=== PATIENT | female | born 1945 | race Caucasian/White ===

== ENCOUNTER → 2016-11-21 | Outpatient (CLI) | payer OTHER | LOC: MMPC 10:00 | PROVIDERS: ATTEND Orthopaedic Surgery | DX: S56.414A Strain of extensor muscle, fascia and tendon of left middle finger at forearm level, initial encounter (principal) | CPT/HCPCS: 99212; G0463 ==

== ENCOUNTER → 2016-12-03 | Outpatient (CLI) | payer OTHER ==
[2016-12-03 09:14] LABS: BILIRUBIN,TOTAL 0.7 mg/dL (0.3-1.2); CALCIUM 9.5 mg/dL (8.7-10.7); CREATININE 0.8 mg/dL (0.50-1.20); LDL CHOLESTEROL,CALCULATED 174.6 mg/dL; POTASSIUM 4.5 meq/L (3.8-5.2); TOTAL PROTEIN 7.2 g/dL (6.1-8.0)
[2016-12-03 10:29] LABS: HEMOGLOBIN 14.7 g/dL (12.0-16.0); RED BLOOD COUNT 4.83 10^6/uL (4.20-5.40); WHITE BLOOD COUNT 4.04 10^3/uL (4.8-10.8)
[2016-12-03 10:30] LABS: IMM GRAN % (AUTO) 0.5 % (0-5); LYMPHOCYTES # (AUTO) 1.02 10*3/uL; MEAN CORPUSCULAR HEMOGLOBIN 30.4 PG (27-31); MEAN CORPUSCULAR HGB CONC 33.4 g/dL (33-37); MEAN PLATELET VOLUME 10.4 FL (7.4-12.2); MONOCYTES # (AUTO) 0.41 10*3/UL (0.3-0.8); NEUTROPHILS # (AUTO) 2.51 10*3/UL; NEUTROPHILS % (AUTO) 62.2 % (50-80); RDW COEFFICIENT OF VARIATION 14.2 % (11.5-14.5)
[2016-12-03 10:31] LABS: BASOPHILS # (AUTO) 0.02 10*3/UL; IMM GRAN# (AUTO) 0.02 10*3/UL; PLATELET MORPHOLOGY COMMENT NORMAL MORPHOLOGY (NORM)
[2016-12-03 10:35] LABS: LYMPHOCYTES % (AUTO) 25.2 % (10-50); MONOCYTES % (AUTO) 10.1 % (5-15)
[2016-12-03 10:36] LABS: BASOPHILS % (AUTO) 0.5 % (0-1); EOSINOPHILS % (AUTO) 1.5 % (0-8)
== END ==
LOC: LAB 08:31
PROVIDERS: ATTEND Internal Medicine
DX: E78.5 Hyperlipidemia, unspecified (principal); K57.30 Diverticulosis of large intestine without perforation or abscess without bleeding
CPT/HCPCS: 36415; 80053; 80061; 84443; 85025

== ENCOUNTER → 2016-12-05 | Outpatient (CLI) | payer OTHER | LOC: MMPC 11:11 | PROVIDERS: ATTEND Internal Medicine | DX: E78.5 Hyperlipidemia, unspecified (principal) | CPT/HCPCS: G0439; G0463 ==

== ENCOUNTER → 2016-12-19 | Outpatient (CLI) | payer OTHER | LOC: MMPC 10:00 | PROVIDERS: ATTEND Orthopaedic Surgery | DX: S56.41 Strain of extensor muscle, fascia and tendon of other and unspecified finger at forearm level (principal) | CPT/HCPCS: 99212; G0463 ==

== ENCOUNTER → 2017-02-04 | Outpatient (CLI) | payer OTHER | LOC: MMPC 09:00 | PROVIDERS: ATTEND Nurse Practitioner Family | DX: L81.8 Other specified disorders of pigmentation (principal) | CPT/HCPCS: 99213; G0463 ==

== ENCOUNTER → 2017-03-04 | Outpatient (CLI) | payer OTHER | LOC: MMPC 09:00 | PROVIDERS: ATTEND Nurse Practitioner Family | DX: Z01.419 Encounter for gynecological examination (general) (routine) without abnormal findings (principal) | CPT/HCPCS: G0101; G0439; G0463 ==

== ENCOUNTER → 2017-05-06 | Outpatient (CLI) | payer OTHER | LOC: RAD 15:50 | PROVIDERS: ATTEND Internal Medicine | DX: M25.551 Pain in right hip (principal); M16.11 Unilateral primary osteoarthritis, right hip; M54.17 Radiculopathy, lumbosacral region | CPT/HCPCS: 99214 ==

== ENCOUNTER → 2017-05-06 | Outpatient (CLI) | payer OTHER ==
--- NOTE | 2017-05-07 10:51 | DI ---
XR HIP B/L MIN 2VW, EACH HIP,05/06/2017 4:00 PM: Clinical History: Bilateral hip pain Previous Exam: May 06, 2017 Findings: AP and frog-leg views of both hips are obtained, and demonstrate anatomic alignment without fractures . There is near complete loss of joint space within the left hip with osteophyte formation and sclero sis. There is also new bone formation at the head neck junction of the left proximal femur. There is mild loss of joint space within the right hip without osteophyte formation or subchondral cy st formation. Mild degenerative changes are seen involving the symphysis pubis. Impression: Degenerative changes of the hips worst involving the left hip. Mild degenerative changes of the right hip.
== END ==
LOC: MOB LAB 15:49
PROVIDERS: ATTEND Internal Medicine
DX: M25.551 Pain in right hip (principal); M16.11 Unilateral primary osteoarthritis, right hip; M54.17 Radiculopathy, lumbosacral region
CPT/HCPCS: 73521; 99214

== ENCOUNTER → 2017-05-23 | Outpatient (CLI) | payer OTHER ==
--- NOTE | 2017-05-24 18:44 | DI ---
MRI LUMBAR SPINE SCAN WITHOUT IV CONTRAST, 05/23/2017 9:53 AM: Clinical History: L5 lumbosacral radiculopathy. Previous Exam: None. Technique: Sagittal and axial T2 weighted; sagittal T1 weighted and T2 STIR; and axial PD. The vertebral bodies are of normal height and size. Severe disc space narrowing is present at L1-2 an d L3-4 with mild narrowing at the remaining lumbar disc spaces. The cord terminates at T12 and the co nus medullaris is normal. The T10-11 disc spaces normal. T11-12 has a circumferentially bulging but n ot herniated disc without canal or neural foraminal stenosis. The T12-L1 disc space is normal. L1-2 h as a circumferentially bulging but not herniated disc without canal or neural foraminal stenosis. L2- 3 has a bulging but not herniated disc with hypertrophic changes of the apophyseal joints and ligamen quita flavum. There is no canal or significant neural foraminal stenosis. L3-4 has a circumferentially bulging but not herniated disc with hypertrophic changes of the apophyseal joints and ligamentum flav um producing a cross-sectional area of the canal at the lower limits of normal. There is no neural fo raminal stenosis. L4-5 has a grade 1 spondylolisthesis with a bulging but not herniated disc and hype rtrophic changes of the apophyseal joints and ligamentum flavum. The right inferior facet of L4 does protrude into the canal, but the cross-sectional area of the canal still is at the lower limits of no rmal. There is no neural foraminal stenosis. There are bilateral L4 pars interarticularis defects. L5 -S1 has a bulging but not herniated disc without canal or neural foraminal stenosis. Readin. There is a bulging but not herniated disc without canal or neural foraminal stenosis at L4-5. The re are bilateral L4 pars intra-articularis defects with a grade 1 spondylolisthesis at L4-5. 2. There are bulging but not herniated discs without canal or neural foraminal stenosis at T12-L1, L 1-2 through L3-4, and at L5-S1. L3-4 has hypertrophic changes of the apophyseal joints and ligamentum flavum bilaterally. 3. The T10-11 and T12-L1 disc spaces are normal.
== END ==
LOC: MRI 09:49
PROVIDERS: ATTEND Internal Medicine
DX: M54.17 Radiculopathy, lumbosacral region (principal); M25.551 Pain in right hip; M47.816 Spondylosis without myelopathy or radiculopathy, lumbar region; M43.16 Spondylolisthesis, lumbar region; M47.815 Spondylosis without myelopathy or radiculopathy, thoracolumbar region
CPT/HCPCS: 72148